=== PATIENT | male | born 1975 ===

== ENCOUNTER 2017-02-05 13:29 | Emergency (ER) | payer OTHER ==
[2017-02-05 13:47] VITALS: BP 109/71
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
== END 2017-02-05 16:38 | disposition home or self-care (01) ==
LOC: ED 13:29
DX: S13.4XXA Sprain of ligaments of cervical spine, initial encounter (principal); S16.1XXA Strain of muscle, fascia and tendon at neck level, initial encounter; S39.012A Strain of muscle, fascia and tendon of lower back, initial encounter; V49.49XA Driver injured in collision with other motor vehicles in traffic accident, initial encounter; Y93.9 Activity, unspecified; Y92.9 Unspecified place or not applicable; Y99.9 Unspecified external cause status
CPT/HCPCS: 99282